=== PATIENT | female | born 1960 | race African-American/Black ===

== ENCOUNTER 2025-04-08 06:05 | Day surgery (SDC) | payer OTHER ==
[2025-04-03 11:44] VITALS: BMI 28.6
[2025-04-08] MEDS ORDERED: LIDOCAINE 1%/EPI 1:100000 (20 ML MULTI DOSE VIAL) ONE (07:27)
[2025-04-08] MEDS ORDERED: BUPIVACAINE HCL/PF 0.5% (5MG/ML) 10 ML VIAL ONE (07:29)
[2025-04-08] MEDS ORDERED: SUCCINYLCHOLINE CHLORIDE 200 MG/10 ML SYRINGE ONE (07:52)
[2025-04-08] MEDS ORDERED: ONDANSETRON 4 MG/2 ML VIAL ONE (07:52)
[2025-04-08] MEDS ORDERED: PROPOFOL 40 ML ONE (07:52)
[2025-04-08] MEDS ORDERED: DEXAMETHASONE SOD PHOSPHATE 4 MG/1 ML VIAL ONE (07:52)
[2025-04-08] MEDS ORDERED: MIDAZOLAM HCL 2 MG/2 ML SINGLE DOSE VIAL ONE (07:53)
[2025-04-08] MEDS ORDERED: LIDOCAINE HCL 2% 100 MG/5 ML DISP.SYRIN ONE (07:53)
[2025-04-08] MEDS ORDERED: SEVOFLURANE 250 ML BTL ONE (07:54)
[2025-04-08] MEDS ORDERED: PROPOFOL 20 ML ONE (08:26)
[2025-04-08] MEDS: LIDOCAINE 1%/EPI 1:100000 (50 ML MULTI DOSE VIAL) INF ONE (09:07)
[2025-04-08] MEDS: BUPIVACAINE HCL/PF 0.5% (5 MG/ML) 30 ML VIAL IJ ONE ×2 (09:08)
[2025-04-08] MEDS: MICROFIBRILLAR COLLAGEN 1 GM EACH TP ONE (09:11)
[2025-04-08] MEDS ORDERED: ONDANSETRON 4 MG/2 ML VIAL IVPUSH PRN (09:43)
[2025-04-08] MEDS ORDERED: LACTATED RINGERS SOLUTION 1,000 ML IV SCH (09:45)
[2025-04-08] MEDS: ACETAMINOPHEN 1000 MG/100 ML BAG IVPB ONE (10:14)
[2025-04-08 11:24] VITALS: RESP 16
[2025-04-08 12:56] VITALS: BP 126/68; PULSE 68; TEMP 98.3
== END 2025-04-08 12:55 | disposition home or self-care (01) ==
LOC: JASU-SURG 06:05
PROVIDERS: ATTEND Surgery
PROC: 0GTG0ZZ Resection of Left Thyroid Gland Lobe, Open Approach (ICD-10-PCS; principal; 2025-04-08 08:00)
DX: E04.1 Nontoxic single thyroid nodule (principal)
CPT/HCPCS: 86850; 86900; 86901; 88307-TC; 94760